=== PATIENT | male | born 1980 | race African-American/Black ===

== ENCOUNTER 2017-01-20 14:29 | Emergency (ER) | payer BC ==
[2017-01-20 14:32] VITALS: BP 158/101; BMI 28.3
--- NOTE | 2017-01-21 09:29 | DR.GENAD ---
HPI - PCP Primary Care Physician: RANDEE - Complaint/Symptoms Chief Complaint:: PATIENT STATED THAT HE HAS BEEN FEELING DIZZY SINCE YESTERDAY AND THINKS HIS BLOOD PRESSURE IS UP. - Source History Provided: Patient - Mode of Arrival Mode of Arrival: Ambulatory - Timing Onset of Chief Complaint: 01/20/17 - Severity Severity: Moderate PMH - PMH Past Medical History: Yes Past Medical History: Migraines, Hypertension Past Surgical History: No - Family History History of Family Medical Conditions: Yes - Social History Does patient currently use any type of tobacco product: No Have you used tobacco products in the last 12 months: No Type of Tobacco Use: None Does any household member use tobacco: No Alcohol Use: None Do you use any recreational Drugs:: No Lives With: Family Lives Where: Home - infectious screening In the last 2 months have you had wt loss of >10#?: NO Have you had fever, night sweats or hemotysis?: No Have you traveled outside the country in the last 6 months?: No Isolation: Standard PE - Vital Signs Vitals: Temperature 98.8 F Pulse Rate 102 Respiratory Rate 20 Blood Pressure [Left Arm] 138/86 Blood Pressure 158/101 O2 Sat by Pulse Oximetry 100 - Discharge Plan Disposition: [facility]BS After Triage Condition: Stable - Follow ups/Referrals Follow ups/Referrals: NFD,None [Primary Care Provider] - 3 days - Instructions
== END 2017-01-20 15:04 | disposition left against medical advice (07) ==
LOC: ER 14:37
DX: R42 Dizziness and giddiness (principal)
CPT/HCPCS: 99281

== ENCOUNTER 2017-01-21 02:09 | Emergency (ER) | payer BC ==
[2017-01-21 02:18] VITALS: BMI 22.1
--- NOTE | 2017-01-21 02:54 | DR.GENAD ---
HPI - PCP Primary Care Physician: RANDEE - Complaint/Symptoms Chief Complaint Doctors Comments: Patient admits to headache, fever, nausea and weaknes for two days. He also complains of low back pain (chronic) Chief Complaint:: BLOOD PRESSURE HIGH; DIZZY; Self Treatment fo Chief Complaint: METOPROLOL (?) - Source History Provided: Patient - Mode of Arrival Mode of Arrival: Ambulatory - Timing Onset of Chief Complaint: 01/19/17 PMH - PMH Past Medical History: Yes Past Medical History: Hypertension Past Surgical History: No - Family History History of Family Medical Conditions: No - Social History Does patient currently use any type of tobacco product: No Have you used tobacco products in the last 12 months: No Type of Tobacco Use: None Does any household member use tobacco: No Alcohol Use: None Do you use any recreational Drugs:: No Lives With: Alone Lives Where: Home - infectious screening In the last 2 months have you had wt loss of >10#?: NO Have you had fever, night sweats or hemotysis?: No Have you traveled outside the country in the last 6 months?: No Isolation: Standard ROS - Review of Systems Eyes: No Symptoms Reported ENTM: No Symptoms Reported Respiratoy: Dry Cough Cardiovascular: No Symptoms Reported Gastrointestinal/Abdominal: Nausea Genitourinary: No Symptoms Reported Neurological: Headache Musculoskeletal: Back Pain Integumentary: No Symptoms Reported Hematologic/Lymphatic: No Symptoms Reported Endocrine: No Symptoms Reported Psychiatric: No Symptoms Reported All Other Systems: Reviewed and Negative PE - Vital Signs Vitals: Temperature 99.2 F Pulse Rate 120 Respiratory Rate 20 Blood Pressure [Left Arm] 138/86 Blood Pressure 122/95 O2 Sat by Pulse Oximetry 99 - General Limitations: No Limitations General Appearance: Alert, In No Apparent Distress - Head Head Exam: Normal Inspection, Atraumatic - Eyes Eye exam: Normal Appearance, PERRL, EOMI - ENT ENT Exam: Normal Exam External Ear Exam: Normal External Inspection TM/Canal Exam: Bilateral Normal Nose Exam: Normal Nose Exam Mouth Exam: Normal Inspection Throat Exam: Tonsillar Erythema - Neck Neck Exam: Normal Inspection, Full ROM - Chest Chest Inspection: Normal Inspection - Respiratory Respiratory Exam: Normal Lung Sounds Bilat Respiratory Exam: Bilateral Clear to Auscultation - Cardiovascular Cardiovascular Exam: Regular Rate, Normal Rhythm - Abdominal Exam Abdominal Exam: Normal Inspection Abdominal Tenderness: negative: RUQ, RLQ, LUQ, LLQ, Epigastrium, Suprapubic, Diffuse, Mild, Moderate, Severe, Other - Extremities Extremities Exam: Normal Inspection - Back Back Exam: Normal Inspection - Neurologic Neurological Exam: Alert, Oriented X3, CN II-XII Intact - Skin Skin Exam: Warm, Dry, Intact Course - Reevaluation 1st: Improved ROR - Labs Reviewed Laboratory Results Reviewed?: Yes (positive strep) Result Diagrams: 01/21/17 03:00 01/21/17 03:00 Laboratory: WBC 11.5 X10^3/uL (3.6-10.0) H 01/21/17 03:00 RBC 5.31 X10^6/uL (4.7-6.0) 01/21/17 03:00 Hgb 14.3 g/dL (13.5-18.0) 01/21/17 03:00 Hct 43.1 % (42.0-54.0) 01/21/17 03:00 MCV 81.1 fL (80.0-100.0) 01/21/17 03:00 MCH 26.9 pg (27.0-34.0) L 01/21/17 03:00 MCHC 33.2 g/dL (33.0-35.0) 01/21/17 03:00 RDW 14.3 % (11.6-16.5) 01/21/17 03:00 Plt Count 379 X10^3/uL (150.0-450.0) 01/21/17 03:00 MPV 8.1 fL (7.4-11.0) 01/21/17 03:00 Neut % 79.2 % (42.0-75.0) H 01/21/17 03:00 Lymph % 11.4 % (21.0-51.0) L 01/21/17 03:00 Bell % 8.7 % (0.0-13.0) 01/21/17 03:00 Eos % 0.1 % (0.9-2.9) L 01/21/17 03:00 Baso % 0.6 % (0.2-1.0) 01/21/17 03:00 Neut # 9.1 x10^3/uL (2.2-4.8) H 01/21/17 03:00 Lymph # 1.3 X10^3/uL (1.3-2.9) 01/21/17 03:00 Bell # 1.0 x10^3/uL (0.3-0.8) H 01/21/17 03:00 Eos # 0.0 x10^3/uL (0.0-0.2) 01/21/17 03:00 Baso # 0.1 X10^3/uL (0.0-0.1) 01/21/17 03:00 Absolute Nucleated RBC 0.1 /100WBC 01/21/17 03:00 Sodium 138 mmol/L (136-145) 01/21/17 03:00 Corrected Sodium 138 mmol/L (136-145) 01/21/17 03:00 Potassium 3.6 mmol/L (3.5-5.1) 01/21/17 03:00 Chloride 103 mmol/L (98-107) 01/21/17 03:00 Carbon Dioxide 29.0 mmol/L (21-32) 01/21/17 03:00 BUN 7 mg/dL (7-18) 01/21/17 03:00 Creatinine 1.02 mg/dL (0.70-1.30) 01/21/17 03:00 Est GFR (MDRD) Af Amer > 60 (>60) 01/21/17 03:00 Est GFR (MDRD) Non-Af > 60 (>60) 01/21/17 03:00 Glucose 119 mg/dL (65-99) H 01/21/17 03:00 Calcium 9.4 mg/dL (8.5-10.1) 01/21/17 03:00 C-Reactive Protein 6.00 mg/L (0-3.0) H 01/21/17 03:00 Influenza Type A (PCR) Negative (NEGATIVE) 01/21/17 03:06 Influenza Type B (PCR) Negative (NEGATIVE) 01/21/17 03:06 Streptococcus Screen Positive (NEGATIVE) A 01/21/17 03:06 - Diagnosis Discharge Problem: Strep pharyngitis - Discharge Plan Condition: Stable - Follow ups/Referrals Follow ups/Referrals: Casey JEFF [Primary Care Provider] - 3 days - Instructions
[2017-01-21] MEDS ORDERED: NS 1000 ML 1,000 ML IV ONE (02:57)
[2017-01-21] MEDS ORDERED: TORADOL 30 MG VIAL IVP ONE (02:58)
[2017-01-21] MEDS ORDERED: NS 1000 ML 1,000 ML ONE (03:08)
[2017-01-21] MEDS ORDERED: TORADOL 30 MG VIAL ONE (03:08)
[2017-01-21 03:21] LABS: BASOPHILS # (AUTO) 0.1 X10^3/uL (0.0-0.1); BASOPHILS % (AUTO) 0.6 % (0.2-1.0); EOSINOPHILS % (AUTO) 0.1 % (0.9-2.9); HEMATOCRIT 43.1 % (42.0-54.0); HEMOGLOBIN 14.3 g/dL (13.5-18.0); LYMPHOCYTES # (AUTO) 1.3 X10^3/uL (1.3-2.9); LYMPHOCYTES % (AUTO) 11.4 % (21.0-51.0); MEAN CORPUSCULAR HEMOGLOBIN 26.9 pg (27.0-34.0); MEAN CORPUSCULAR HGB CONC 33.2 g/dL (33.0-35.0); MEAN CORPUSCULAR VOLUME 81.1 fL (80.0-100.0); MEAN PLATELET VOLUME 8.1 fL (7.4-11.0); MONOCYTES % (AUTO) 8.7 % (0.0-13.0); NEUTROPHILS # (AUTO) 9.1 x10^3/uL (2.2-4.8); NEUTROPHILS % (AUTO) 79.2 % (42.0-75.0); PLATELET COUNT 379 X10^3/uL (150.0-450.0); RED BLOOD COUNT 5.31 X10^6/uL (4.7-6.0); RED CELL DISTRIBUTION WIDTH 14.3 % (11.6-16.5); WHITE BLOOD COUNT 11.5 X10^3/uL (3.6-10.0)
[2017-01-21 03:26] LABS: BLOOD UREA NITROGEN 7 mg/dL (7-18); CALCIUM 9.4 mg/dL (8.5-10.1); CHLORIDE 103 mmol/L (98-107); COR NA(FOR HYPERGLY) 138 mmol/L (136-145); CREATININE 1.02 mg/dL (0.70-1.30); SODIUM 138 mmol/L (136-145); eGFR BLACK RACES > 60 (>60); eGFR NON BLACK RACES > 60 (>60)
[2017-01-21 04:34] VITALS: BP 141/90
== END 2017-01-21 04:45 | disposition home or self-care (01) ==
LOC: ER 02:09
DX: J02.0 Streptococcal pharyngitis (principal)
CPT/HCPCS: 36415; 80048; 85025; 86140; 87502; 87880; 96365; 96374; 99283; A4222; J1885